=== PATIENT | female | born 1980 | race Caucasian/White ===

== ENCOUNTER 2020-05-14 12:32 | Emergency (ER) | payer SELFPAY ==
[2020-05-14] MEDS ORDERED: NITROGLYCERIN 0.4 MG/TAB 25 TAB/BOTTLE SL PRN (12:41)
--- NOTE | 2020-05-14 12:44 | ER Document Report ---
ED General - General Stated Complaint: CHEST PAIN Time Seen by Provider: 05/14/20 12:36 Primary Care Provider: YAHAIRA FARLEY MD [ACTIVE STAFF] - Follow up in 3-5 days Notes: 39-year-old female hypertensive prediabetic on 2 medications presents with dizziness spots in her vision uneasiness and near syncope while reorganizing her spice drawer that 10 in the morning. Followed soon by a "pop you know, like when there is water pushing up against a rock in a stream and then it pushes through" in her chest which radiate down her right arm. This has been constant now for over an hour. She went to [facility] to get some bananas and lettuce/lupe ad which she thought would improve her symptoms and was diverted to urgent care by her partner. Urgent care she had a normal EKG EMS was called. She was given aspirin. Pressure was in the 150 range. She refused nitroglycerin. She not had a stress test. - Related Data Allergies/Adverse Reactions: Penicillins Allergy (Verified 05/14/20 13:02) seafood Allergy (Uncoded 05/14/20 13:02) Past Medical History - General Information source: Patient - Social History Smoking Status: Current Every Day Smoker Smoking Education Provided: Yes - The patient ED visit today was directly related to their abuse of tobacco. Family History: None Review of Systems - Review of Systems Notes: REVIEW OF SYSTEMS GEN: Denies fever, chills, weight loss ENT: Denies sore throat, nasal discharge, ear pain EYES: Denies blurry vision, eye pain, discharge CV: Chest pain pressure discomfort RESP: Denies cough, shortness of breath, wheezing GI: Denies abdominal pain, nausea, vomiting, diarrhea MSK: Denies joint pain/swelling, edema, SKIN: Denies rash, skin lesions LYMPH: Denies swollen glands/lymph nodes NEURO: Dizziness focal weakness or numbness, dizziness PSYCH: Denies depression, suicidal or homicidal ideation PHYSICAL EXAMINATION General: No acute distress, well-nourished Head: Atraumatic, normocephalic ENT: Mouth normal, oropharynx moist, no exudates or tonsillar enlargement Eyes: Conjunctiva normal, pupils equal, lids normal Neck: No JVD, supple, no guarding CVS: Normal rate, regular rhythm, no murmurs Resp: No resp distress, equal and normal breath sounds bilaterally GI: Nondistended, soft, no tenderness to palpation, no rebound or guarding Ext: No deformities, no edema, normal range of motion in upper and lower ext Back: No CVA or midline TTP Skin: No rash, warm Lymphatic: No lymphadeopathy noted Neuro: Awake, alert. Face symmetric. GCS 15. Physical Exam - Vital signs Vitals: Resp Pulse Ox 13 100 05/14/20 12:34 05/14/20 12:34 Course - Re-evaluation Re-evalutation: 05/14/20 13:55 2 points Low Score (0-3 points) Risk of MACE of 0.9-1.7%. Hypertension versus atypical chest pain no evidence of dissection PE or other serious cause Refused nitro Pressure slightly high but not high enough that I am super concerned Is already had aspirin. EKG no change Heart score above Patient troponin negative labs otherwise normal 05/14/20 17:31 Refused nitro pressure in the 1 40-1 50 range per no reassessment she is painfree negative troponin heart score is 2 She remarks that she just moved here a month ago and needs to have her blood pressure medicines adjusted. She says that 1 40-1 50 systolic is "good for me." She is reassured looks well and is stable for discharge with outpatient cardiology follow-up. I have discussed with the patient there likely diagnosis, aftercare plan, follow-up plans and my usual and customary return precautions. They verbalized understanding of this. - Vital Signs Vital signs: Temp Pulse Resp BP Pulse Ox 97.6 F 75 18 138/85 H 96 05/14/20 14:54 05/14/20 14:54 05/14/20 14:54 05/14/20 14:54 05/14/20 14:54 - Laboratory Result Diagrams: 05/14/20 12:45 05/14/20 12:45 Laboratory results interpreted by me: 05/14/20 12:45 Carbon Dioxide 31 H - Diagnostic Test Radiology reviewed: Image reviewed, Reports reviewed - EKG Interpretation by Me EKG shows normal: Sinus rhythm Rate: Normal Rhythm: NSR When compared to previous EKG there are: Previous EKG unavailable - No ST depression no ST elevation no T wave inversion Normal intervals Discharge - Discharge Clinical Impression: Hypertension Qualifiers: Hypertension type: unspecified Qualified Code(s): I10 - Essential (primary) hypertension Chest pain, unspecified Qualifiers: Chest pain type: unspecified Qualified Code(s): R07.9 - Chest pain, unspecified Condition: Good Disposition: HOME, SELF-CARE Instructions: Chest Pain of Unclear Cause ([facility]) Additional Instructions: Please call our cardiology team to decide if you need to have a stress test done this coming week. Referrals: YAHAIRA FARLEY MD [ACTIVE STAFF] - Follow up in 3-5 days
[2020-05-14 13:00] LABS: ABSOLUTE BASOPHILS # (AUTO) 0.1 10^3/uL (0.0-0.2); ABSOLUTE EOSINOPHILS # (AUTO) 0.2 10^3/uL (0.0-0.6); ABSOLUTE LYMPHOCYTES (AUTO) 3.3 10^3/uL (0.5-4.7); ABSOLUTE MONOCYTES (AUTO) 0.7 10^3/uL (0.1-1.4); ABSOLUTE NEUT (AUTO) 5.2 10^3/uL (1.7-8.2); BASOPHILS % (AUTO) 0.6 % (0-2); EOSINOPHILS % (AUTO) 1.8 % (0-6); HEMATOCRIT 39.9 % (36.0-47.0); HEMOGLOBIN 13.3 g/dL (12.0-15.5); LYMPHOCYTES % (AUTO) 35.2 % (13-45); MEAN CORPUSCULAR HGB CONC 33.4 g/dL (32.0-36.0); MEAN CORPUSCULAR VOLUME 87 fl (80-97); MONOCYTES % (AUTO) 7.2 % (3-13); PLATELET COUNT 253 10^3/uL (150-450); RED BLOOD COUNT 4.59 10^6/uL (3.72-5.28); RED CELL DISTRIBUTION WIDTH 13.6 % (11.5-14.0); SEGMENTED NEUTROPHILS % (AUTO) 55.2 % (42-78); TOTAL CELLS COUNTED % (AUTO) 100 %; WHITE BLOOD COUNT 9.3 10^3/uL (4.0-10.5)
[2020-05-14 13:14] LABS: ANION GAP 6 (5-19); BLOOD UREA NITROGEN 17 mg/dL (7-20); CALCIUM 9.6 mg/dL (8.4-10.2); CARBON DIOXIDE 31 mmol/L (22-30); CHLORIDE 105 mmol/L (98-107); GLUCOSE 90 mg/dL (75-110); POTASSIUM 3.7 mmol/L (3.6-5.0)
[2020-05-14 14:56] VITALS: BP 138/85
--- NOTE | 2020-05-14 16:47 | EKG REPORT ---
SEVERITY:- NORMAL ECG - SINUS RHYTHM : Confirmed by: Abiel Dillon MD 14-May-2020 16:46:42
== END 2020-05-14 14:54 | disposition home or self-care (01) ==
LOC: ER 12:32
DX: R07.9 Chest pain, unspecified (principal); I10 Essential (primary) hypertension; R42 Dizziness and giddiness; R55 Syncope and collapse; F17.200 Nicotine dependence, unspecified, uncomplicated; Z88.0 Allergy status to penicillin
CPT/HCPCS: 36415; 80048; 84484; 85025; 93005; 93010; 99284